=== PATIENT | male | born 1955 | race Caucasian/White ===

== ENCOUNTER 2017-07-25 11:34 | Emergency (ER) | payer BC ==
--- NOTE | 2017-07-25 11:52 | Emergency Department Record ---
History of Present Illness - General Chief complaint: Lower Extremity Pain Stated complaint: LEFT LEG PAIN Time Seen by Provider: 07/25/17 11:51 Source: Patient, Family Mode of Arrival: Ambulatory Limitations: No limitations - History of Present Illness Initial comments: 61 yo male presents with left leg pain that started last night. The pain radiates from the thigh to the calf and foot with walking or exertion. No swelling. His pain is better with rest. With walking the left foot felt a little numb and tingly. No paleness, coolness, or changes in color. No history of DVT. No joint pain in the hip or knee. No swelling of the foot, calf, thigh. The symptoms improve with rest. MD Complaint: Extremity pain Onset/Timin -: Days(s) Location: Left, Thigh History of Same: No Radiation: Distal Severity scale (1-10): 5 Quality: Aching Consistency: Constant Improves with: Nothing Worsens with: Exertion, Walking, Weight bearing Associated Symptoms: Denies other symptoms - Related Data Allergies Allergy/AdvReac Type Severity Reaction Status Date / Time enalapril AdvReac BEHAVIORAL Verified 07/25/17 11:48 CHANGES naproxen AdvReac DIARRHEA Verified 07/25/17 11:48 Travel Screening - Travel/Exposure Within Last 30 Days Have you traveled within the last 30 days?: No Review of Systems Constitutional: Denies: Chills, Fever, Malaise, Weakness Eyes: Denies: Eye discharge ENT: Denies: Congestion, Throat pain Respiratory: Denies: Cough, Dyspnea, Hemoptysis, Stridor, Wheezes Cardiovascular: Denies: Chest pain, Palpitations, Syncope Endocrine: Denies: Fatigue Gastrointestinal: Denies: Abdominal pain, Diarrhea, Nausea, Vomiting Genitourinary: Denies: Dysuria, Frequency, Hematuria Musculoskeletal: Reports: Myalgia. Denies: Arthralgia, Back pain, Joint swelling, Neck pain Skin: Denies: Bruising, Change in color, Rash Neurological: Reports: Tingling. Denies: Headache, Numbness, Weakness Psychiatric: Denies: Anxiety Hematological/Lymphatic: Denies: Blood Clots, Easy bleeding, Easy bruising, Swollen glands Past Medical History - SOCIAL HISTORY Smoking Status: Current every day smoker Alcohol Use: Heavy Drug Use: None - RESPIRATORY Hx Respiratory Disorders: No - CARDIOVASCULAR Hx Cardio Disorders: Yes Hx Hypertension: Yes - NEURO Hx Neuro Disorders: No - GI Hx GI Disorders: No - Hx Genitourinary Disorders: No - ENDOCRINE Hx Endocrine Disorders: No - MUSCULOSKELETAL Hx Musculoskeletal Disorders: Yes - PSYCH Hx Psych Problems: No - HEMATOLOGY/ONCOLOGY Hx Hematology/Oncology Disorders: No Family Medical History Any Significant Family History?: No Physical Exam - General General Appearance: Alert, Oriented x3, Cooperative, No acute distress Limitations: No limitations - Head Head exam: Normal inspection - Eye Eye exam: Normal appearance. negative: Conjunctival injection - ENT ENT exam: Normal exam, Mucous membranes moist Ear exam: Normal external inspection Nasal Exam: Normal inspection Mouth exam: Normal external inspection - Neck Neck exam: Normal inspection, Full ROM. negative: Tenderness - Respiratory Respiratory exam: Normal lung sounds bilaterally. negative: Respiratory distress - Cardiovascular Cardiovascular Exam: Regular rate, Normal rhythm, Normal heart sounds, Other ( No edema, visibly symmetric right and left. bilateral dimished pulses, with slowed cap refill bilateral but not cool ) Peripheral Pulses: 0: Dorsalis Pedis (L), 1+: Dorsalis Pedis (R) (dimished) - GI/Abdominal GI/Abdominal exam: Soft. negative: Distended, Guarding, Tenderness - Rectal Rectal exam: Deferred - exam: Deferred - Extremities Extremities exam: Normal inspection, Full ROM, Other (No swelling or tenderness , no edema, no abnormal warthm or coolness.). negative: Calf tenderness, Joint swelling, Normal capillary refill (mildly diminished bilaterally), Pedal edema, Tenderness - Back Back exam: Denies: CVA tenderness (R), CVA tenderness (L) - Neurological Neurological exam: Alert, Normal gait, Oriented X3. negative: Altered, Motor sensory deficit - Psychiatric Psychiatric exam: Normal affect, Normal mood - Skin Skin exam: Dry, Intact, Normal color, Warm. negative: Cyanosis, Diaphoretic, Erythema, Mottled, Pallor, Petechiae, Rash, Vesicles Course Vital Signs 07/25/17 11:45 Temperature 97.5 F L Pulse Rate 45 L Respiratory 20 Rate Blood Pressure 150/75 Pulse Ox 99 - Reevaluation(s) Reevaluation #1: [facility] [employer] reports decreased from on the left from possible proximal location Labs ordered 07/25/17 14:33 07/25/17 14:49 The CBC was reviewed and is unremarkable Waiting for US tech to send images to Radiologist I discussed heparin at this time with the patient given the preliminary concerns about decreased flow on the left 07/25/17 15:07 No acute changes in the labs on the CBC or CMP. 07/25/17 15:47 The arterial US was reports. Mild to moderate decreased flow on the right with plaque at the [employer] and SFA, The left demonstrates diffusely diminished flow on the left. 07/25/17 16:04 I ARCADIO Flores of vascular surgery. We discussed the velocities on the arterial study. He recommends transfer ER to ER for full duplex doppler. I called the [facility] I Arcadio Platt. The ED accepts the patient for transfer. 07/25/17 16:23 Medical Decision Making - Lab Data Result diagrams: 07/25/17 14:35 07/25/17 14:35 Disposition Disposition: Transfer Clinical Impression: Severe arterial insufficiency of left lower extremity Disposition: Acute Care Hospital Transfer Transfer To: [facility] Reason For Transfer: Acute arterial insufficiency Accepting Physician: Lc/Enio Time Discussed w/Accepting Physician: 16:17 Condition: (2) Stable Forms: Patient Portal Access Time of Disposition: 16:17 Quality - Quality Measures Quality Measures: N/A - Blood Pressure Screening Does Patient Have Any of the Following: Active Dx of HTN Blood Pressure Classification: Hypertensive Reading Systolic Measurement: 150 Diastolic Measurement: 75 Screening for High Blood Pressure: Patient Exclusion, Hx of HTN [G9744]
[2017-07-25] MEDS: HYDROCODONE/APAP 7.5/325MG TABLET PO ONE ×2 (12:10→12:11)
[2017-07-25] MEDS ORDERED: IBUPROFEN 600 MG TABLET PO ONE (12:11)
[2017-07-25] MEDS ORDERED: 0.9 % SODIUM CHLORIDE 1000ML 1,000 ML IV ONE (14:30)
[2017-07-25 14:45] LABS: BASO % 0.6 % (0-6); EOS % 1.2 % (0-6); GRAN % 68.4 % (47-80); HEMATOCRIT 44.4 % (42.0-52.0); HEMOGLOBIN 16.2 gm/dl (14.0-18.0); LYMPH % 22.7 % (16-45); MEAN CORPUSCULAR HEMOGLOBIN 35.8 pg (27-33); MEAN CORPUSCULAR HGB CONC 36.5 g/dl (32-36); MEAN PLATELET VOLUME 8.8 fl (7.4-10.4); MONO % 7.1 % (0-9); PLATELET COUNT 240 K/uL (130-400); RED BLOOD COUNT 4.53 M/uL (4.40-5.70); RED CELL DISTRIBUTION WIDTH 13.4 % (11.5-14.5); WHITE BLOOD COUNT W/O DIFF 10.3 K/uL (4.2-12.2)
[2017-07-25] MEDS ORDERED: HEPARIN SODIUM 1000 UNIT/1 ML 10ML VIAL IVP ONE (14:48)
[2017-07-25 14:54] LABS: BLOOD UREA NITROGEN 8 mg/dL (6-20); CREATININE 0.4 mg/dL (0.7-1.2); EST GLOMERULAR FILTRATION RATE > 60 mL/min
[2017-07-25 14:57] LABS: GLUCOSE,RANDOM 100 mg/dL (74-109)
[2017-07-25 14:58] LABS: PARTIAL THROMBOPLASTIN TIME 30.3 SECONDS (24.5-39.1); PROTHROMBIN TIME (PATIENT) 10.8 SECONDS (9.5-12.1)
[2017-07-25] MEDS ORDERED: HEPARIN SODIUM/D5W 25,000 UNITS/500 ML BAG IV SCH (15:00)
--- NOTE | 2017-07-26 19:26 | US ARTERIAL DOPPLER REPORT ---
EXAM: ARTERIAL DOPPLER OF THE BILATERAL LOWER EXTREMITIES HISTORY: PAIN WITH WALKING, LEFT LEG. TINGLING IN THE FOOT. SMOKER. TECHNIQUE: Sonographic evaluation of the arterial system of the bilateral lower extremities was performed with the addition of Doppler and spectral analysis. Images were obtained with the vascular probe oriented at 60 degrees. COMPARISON: None. FINDINGS: 3 Right Waveform Left Waveform Common Femoral Artery 191.0 cm/s triphasic 43.4 cm/s constant forward flow Profunda Femoral Artery 143.8 cm/s biphasic 15.9 cm/s constant forward flow Proximal Superficial Femoral Artery 87.7 cm/s triphasic 20.7 cm/s constant forward flow Mid Superficial Femoral Artery 46.4 cm/s triphasic 27.7 cm/s constant forward flow Distal Superficial Femoral Artery 183.7 cm/s triphasic 13.7 cm/s monophasic Popliteal Artery 49.1 cm/s triphasic 11.2 cm/s monophasic Anterior Tibial Artery 24.9 cm/s monophasic 8.0 cm/s constant forward flow Posterior Tibial Artery 36.3 cm/s triphasic 16.4 cm/s monophasic Peroneal Artery 28.0 cm/s monophasic 15.1 cm/s constant forward flow Dorsalis Pedis Artery 14.2 cm/s monophasic 5.9 cm/s monophasic When the images are reviewed, prominent calcified plaque is seen in the right common femoral, particularly posteriorly and there is also prominent calcified plaque in the distal right SFA, particularly posteriorly. Some is seen in the popliteal as well. On the left, there is also considerable calcified plaque in the upper common femoral in particular with some in the posterior aspect of the popliteal. IMPRESSION: 1. ON THE RIGHT, THERE IS SOME ELEVATION OF THE PEAK SYSTOLIC VELOCITY AT THE COMMON FEMORAL AND AGAIN AT THE DISTAL SUPERFICIAL FEMORAL WITH PLAQUE SEEN IN THIS REGION CONSISTENT WITH MILD TO MODERATE ATHEROMATOUS DISEASE. 2. ON THE LEFT, THERE IS PROBABLY A HIGH DEGREE OF STENOSIS PROXIMALLY INVOLVING THE EXTERNAL ILIAC AND COMMON FEMORAL WITH CONSIDERABLY REDUCED VELOCITY THROUGHOUT THE LOWER EXTREMITY WITH SEVERAL AREAS OF RELATIVELY CONSTANT FORWARD FLOW WITHOUT NORMAL WAVEFORMS SUGGESTING A POTENTIAL SEVERE LEVEL OF STENOSIS PROXIMALLY. FOLLOW-UP CTA OF THE LOWER EXTREMITIES MAY BE USEFUL. JOB NUMBER: [id number] [facility]
== END 2017-07-25 16:37 | disposition short-term general hospital (02) ==
LOC: ER 11:34
DX: I74.3 Embolism and thrombosis of arteries of the lower extremities (principal); I10 Essential (primary) hypertension; F17.210 Nicotine dependence, cigarettes, uncomplicated
CPT/HCPCS: 80048; 85025; 85610; 85730; 93925; 96365; 96366; 96375; 99285; J7030

== ENCOUNTER 2018-08-29 15:16 | Inpatient (IN) | payer BC ==
--- NOTE | 2018-08-29 15:33 | Emergency Department Record ---
History of Present Illness - General Chief complaint: GI Bleed Stated complaint: BLACK STOOL,HEADACHE Time Seen by Provider: 08/29/18 15:29 Source: Patient Mode of Arrival: Ambulatory Limitations: No limitations - History of Present Illness Initial comments: The patient is here due to having black stools for 3 days with nausea. He denies any AP, CP, fever, vomiting or diarrhea. The patient was recently started on Mobic for pain but did stop it 3 days ago. He has no hx of GI bleeds or PUD. MD complaint: Melena Onset/Timin -: Days(s) Radiation: None Quality: Painless Consistency: Constant Improves with: None Worsens with: None Context: Other Associated Symptoms: Denies other symptoms Treatments Prior to Arrival: None - Related Data Home Medications Medication Instructions Recorded Confirmed Last Taken Atorvastatin Calcium 10 mg PO DAILY 08/29/18 08/29/18 Unknown Allergies Allergy/AdvReac Type Severity Reaction Status Date / Time enalapril AdvReac BEHAVIORAL Verified 07/25/17 11:48 CHANGES naproxen AdvReac DIARRHEA Verified 07/25/17 11:48 Travel Screening - Travel/Exposure Within Last 30 Days Have you traveled within the last 30 days?: No Review of Systems Constitutional: Denies: Chills, Fever Eyes: Denies: Eye discharge ENT: Denies: Congestion Respiratory: Denies: Cough, Dyspnea Cardiovascular: Denies: Arrhythmia, Chest pain Endocrine: Denies: Fatigue Gastrointestinal: Reports: Melena, Nausea Genitourinary: Denies: Dysuria Musculoskeletal: Denies: Arthralgia Skin: Denies: Bruising Past Medical History - SOCIAL HISTORY Smoking Status: Former smoker Alcohol Use: None Drug Use: None - RESPIRATORY Hx Respiratory Disorders: No - CARDIOVASCULAR Hx Cardio Disorders: Yes Hx Hypertension: Yes - NEURO Hx Neuro Disorders: No - GI Hx GI Disorders: No - Hx Genitourinary Disorders: No - ENDOCRINE Hx Endocrine Disorders: No - MUSCULOSKELETAL Hx Musculoskeletal Disorders: Yes - PSYCH Hx Psych Problems: No - HEMATOLOGY/ONCOLOGY Hx Hematology/Oncology Disorders: No Family Medical History Any Significant Family History?: No Physical Exam - General General Appearance: Alert, Oriented x3, Cooperative, No acute distress - Head Head exam: Atraumatic, Normocephalic - Eye Eye exam: Normal appearance, PERRL - ENT Throat exam: Normal inspection. negative: Tonsillar erythema, Tonsillar exudate - Neck Neck exam: Normal inspection, Full ROM. negative: Tenderness - Respiratory Respiratory exam: Normal lung sounds bilaterally. negative: Respiratory distress - Cardiovascular Cardiovascular Exam: Regular rate, Normal rhythm, Normal heart sounds - GI/Abdominal GI/Abdominal exam: Soft, Normal bowel sounds. negative: Rebound, Rigid, Tenderness - Rectal Rectal exam: Black stool, Heme (+) stool - Extremities Extremities exam: Normal inspection, Full ROM, Normal capillary refill. negative: Tenderness - Neurological Neurological exam: Alert, Normal gait. negative: Abnormal gait, Motor sensory deficit - Psychiatric Psychiatric exam: negative: Anxious Course Vital Signs 08/29/18 15:22 Temperature 98.1 F Pulse Rate 96 H Respiratory 20 Rate Blood Pressure 162/81 Pulse Ox 97 - Reevaluation(s) Reevaluation #1: The patient is doing very well at this time. He denies any pain or nausea and is very hungry. I did explain the need for admission to [facility] and for an EGD on . We will check serial hemoglobins and will keep the patient on Protonix. I did discuss the case with Dr. Cabrera and he does agree to the admission. 08/29/18 16:34 Medical Decision Making - Data Complexity MDM Data: Labs Ordered and/or Reviewed - Lab Data Result diagrams: 08/29/18 15:50 08/29/18 15:50 Disposition Disposition: Admit Clinical Impression: Upper gastrointestinal bleed Disposition: Still a Patient at [facility] Decision to Admit: Admit from ER Decision to Admit Date: 08/29/18 Decision to Admit Time: 16:36 Accepting Physician: Deborah Time Discussed w/Accepting Physician: 16:36 Condition: (2) Stable Forms: Patient Portal Access Time of Disposition: 16:36 Quality - Quality Measures Quality Measures: N/A - Blood Pressure Screening View Details: Yes Does Patient Have Any of the Following: No Blood Pressure Classification: Pre-Hypertensive BP Reading Systolic Measurement: 162 Diastolic Measurement: 81 Screening for High Blood Pressure: < Pre-Hypertensive BP, F/U Documented > [ G8950] Pre-Hypertensive Follow-up Interventions: Referral to alternative/primary care provider.
[2018-08-29] MEDS ORDERED: ONDANSETRON HCL IV 4 MG/2 ML VIAL IV ONE (15:42)
[2018-08-29] MEDS ORDERED: 0.9 % SODIUM CHLORIDE 1,000 ML BAG IV ONE (15:42)
[2018-08-29 15:57] LABS: BASO % 0.4 % (0-6); EOS % 0.5 % (0-6); GRAN % 75.4 % (47-80); HEMATOCRIT 27.5 % (42.0-52.0); LYMPH % 16.1 % (16-45); MEAN CELL VOLUME 103.4 fl (81-97); MEAN CORPUSCULAR HEMOGLOBIN 33.8 pg (27-33); MEAN CORPUSCULAR HGB CONC 32.7 g/dl (32-36); MEAN PLATELET VOLUME 8.7 fl (7.4-10.4); MONO % 7.6 % (0-9); PLATELET COUNT 192 K/uL (130-400); RED BLOOD COUNT 2.66 M/uL (4.40-5.70); RED CELL DISTRIBUTION WIDTH 13.2 % (11.5-14.5); WHITE BLOOD COUNT W/O DIFF 8.5 K/uL (4.2-12.2)
[2018-08-29 16:08] LABS: BLOOD UREA NITROGEN 13 mg/dL (8-23); CREATININE 0.5 mg/dL (0.7-1.2); EST GLOMERULAR FILTRATION RATE > 60 mL/min
[2018-08-29 16:09] LABS: LIPASE 43 U/L (13-60); TOTAL PROTEIN 6.4 g/dL (6.6-8.7)
[2018-08-29] MEDS ORDERED: PANTOPRAZOLE SODIUM IV 40 MG VIAL IVP ONE (16:09)
[2018-08-29 16:11] LABS: GLUCOSE,RANDOM 117 mg/dL (74-109)
[2018-08-29 16:13] LABS: ALT/SGPT 34 U/L (<41)
[2018-08-29 16:14] LABS: ALBUMIN 4.1 g/dL (4.0-5.0); ALKALINE PHOSPHATASE 68 U/L (40-129); AST/SGOT 32 U/L (10.0-50.0); BILIRUBIN,DIRECT < 0.2 mg/dL (0-0.3)
[2018-08-29] MEDS ORDERED: 0.9 % SODIUM CHLORIDE 1000ML 1,000 ML IV PRN (18:18)
[2018-08-29] MEDS ORDERED: ONDANSETRON HCL IV 4 MG/2 ML VIAL IVP PRN (18:18)
[2018-08-29 19:49] LABS: ABO GROUP O; RH TYPE POSITIVE
[2018-08-29 19:50] LABS: ANTIBODY SCREEN NEGATIVE (NEGATIVE)
[2018-08-29] MEDS ORDERED: LORAZEPAM 2 MG/ML VIAL IV ONE (20:30)
[2018-08-29] MEDS ORDERED: LORAZEPAM 2 MG/ML VIAL IV PRN (20:31)
[2018-08-29] MEDS ORDERED: THIAMINE MONONITRATE 100 MG TABLET PO SCH (20:45)
[2018-08-29 21:46] LABS: HEMATOCRIT 24.9 % (42.0-52.0)
[2018-08-30 06:49] LABS: HEMATOCRIT 24.7 % (42.0-52.0); HEMOGLOBIN 7.8 gm/dl (14.0-18.0)
[2018-08-30 08:31] LABS: IMMED. SPIN CROSSMATCH COMPATIBLE
[2018-08-30] MEDS ORDERED: PANTOPRAZOLE SODIUM IV 40 MG VIAL IVP SCH (08:45)
--- NOTE | 2018-08-30 08:50 | History and Physical Report ---
DATE OF ADMISSION: 08/29/2018 at 7:48 p.m. CHIEF COMPLAINT: GI bleed. HISTORY OF PRESENT ILLNESS: This 62-year-old male presented to the emergency department with black tarry stools which started 3 days prior. He denies any abdominal pain but admits to drinking 12 beers a day and he was on Mobic for his right shoulder, degenerative joint disease, and rotator cuff disease which was repaired in May 2018. When the black tarry stools started, the patient stopped the Mobic but continued to drink 12 beers a day. He is having about 2 stools a day. His last beer was about 24 hours ago at 10 p.m. yesterday. PAST MEDICAL HISTORY: Hypertension, PVCs. He stopped tobacco use 1 year ago. Peripheral vascular disease, stents in both legs. Dr. Jarquin placed the stents. Alcoholism. Right shoulder rotator cuff disease. Arthritis in his low back. PAST SURGICAL HISTORY: Jaw surgery, vasectomy, rotator cuff right shoulder, last surgery was May 2018, had it done twice, and a ruptured disc in his back. MEDICATIONS: 1. Clonidine 0.2 mg daily for hypertension. 2. Atorvastatin 10 mg daily for cholesterol problems. ALLERGIES: ENALAPRIL, NAPROSYN. FAMILY/PSYCHOSOCIAL HISTORY: No significant family history. He is a former smoker. He quit smoking cigarettes about a year ago. He drinks 12 beers a day. No illegal drug use. REVIEW OF SYSTEMS: HEENT: No upper respiratory infection symptoms, cough, cold, or congestion. Cardiovascular: No chest pain, palpitations, or arrhythmia. Respiratory: No cough, cold, or congestion. Gastrointestinal: No abdominal pain. He is slightly distended. There is no pain on palpation of the liver. He has the color of liver disease, though. Genitourinary: No dysuria, hematuria, frequency, or burning on urination. Musculoskeletal: He has arthritis in his back and arms. Neurological: No CVA, paralysis, or paresthesias. Endocrine: No diabetes or thyroid disease. Integument: No rash, ulcers, change in moles, or yellow skin. PHYSICAL EXAMINATION: VITALS: Height 5 feet 9 inches, weight 165 pounds. Temperature 98.1, pulse 93, blood pressure 140/64, respiratory rate 16, pulse ox 96% on room air. HEENT: Pupils are equal, round, and reactive to light and accommodation. Extraocular muscles are intact. Throat is clear. Nose is clear. Tympanic membranes are mcintyre. NECK: Supple. No jugular venous distention. No hepatojugular reflux. No carotid bruits. Thyroid is smooth. CARDIOVASCULAR: Regular rate and rhythm without murmurs, clicks, rubs, or gallops. RESPIRATORY: Clear to auscultation. Breath sounds equal bilaterally. ABDOMEN: Soft, distended. He has enlarged liver. EXTREMITIES: No pitting edema. No cyanosis. He does have peripheral vascular disease. He has stents in both legs. Full range of motion of his extremities. Peripheral pulses are good. BREASTS: Normal male breasts. RECTAL: Exam deferred. It was done in the emergency department. Black stools, Hemoccult positive. GENITALIA: Deferred. NEUROLOGIC: Cranial nerves II-XII intact. No gross defects. Sensation normal, strength normal. Deep tendon reflexes equal bilaterally with Babinski negative. MENTAL STATUS: Alert and oriented x3. IMPRESSION: 1. Upper GI bleed secondary to Mobic and alcohol use. 2. Liver disease. 3. Alcoholism, 12 beers a day, last beer was 10 p.m. last night, just about 20 hours ago. PLAN: Serial hemoglobin starting at 10 p.m. every 8 hours. IV normal saline at 50 mL/hour. CC: Dr. Luis DAVIS
[2018-08-30] MEDS ORDERED: PANTOPRAZOLE SODIUM IV 40 MG VIAL IV SCH (10:00)
--- NOTE | 2018-08-30 10:15 | Discharge Note ---
VTE H&P Assessment - Risk for VTE Risk for VTE: Yes Risk Level: Moderate Risk Assessment Date: 08/29/18 Risk Assessment Time: 19:00 VTE Orders Placed or Will Be Placed: No VTE Reason for No Prophylaxis: Contraindicated (GI bleed) Discharge Medications - Discharge Medications Home Medications: Ambulatory Orders Clonidine HCl 0.2 mg PO DAILY 11/26/15 [Last Taken 07/25/17] Atorvastatin Calcium 10 mg PO DAILY 08/29/18 [Last Taken Unknown] Aspirin [Aspirin EC] 81 mg PO DAILY 08/30/18 [Last Taken Unknown] Discharge Note - Date Date of Discharge Note: 08/30/18 Disposition: Acute Care Hospital Transfer Condition: (2) Stable Additional Instructions: Discussed case with Dr. Anderson, Discussed with Dr. Rodríguez and will transfer to [facility] to a hospital bed. Forms: Patient Portal Access
--- NOTE | 2018-08-31 08:20 | Discharge Summary ---
DATE: 08/30/2018 at 10:17 a.m. DISCHARGE DIAGNOSES: 1. Upper GI bleed. 2. Alcoholism. Drinks 12 beers a day. 3. Right shoulder rotator cuff pain and was using Mobic, stopped on Tuesday. 4. Hypertension. ATTENDING PHYSICIAN: Marco Cabrera DO REASON FOR HOSPITALIZATION: This 62-year-old male was seen in the emergency department for black stools, having 2 black stools a day since Tuesday; 4 days ago. His hemoglobin in the ER was 9.0. He was placed in the hospital for serial hemoglobin and further evaluation by GI. SIGNIFICANT FINDINGS: His hemoglobin was 9.0 yesterday but dropped down to 7.8. He is getting 1 unit of blood now. Discussed the case with Dr. Anderson, the GI doctor who comes to our hospital tomorrow. He said he wants the patient transferred to [facility] to have his scope done. Because of his high risk for esophageal varices it can be a very dangerous procedure. HOSPITAL COURSE: The patient is tolerating the loss of blood and his vitals are stable. He is made aware of the transfer and he is in agreement. Discussed the case with Internal Medicine at [facility], Dr. Pena, who accepted the patient in transfer and have GI to see the patient. RYAN
== END 2018-08-30 10:50 | disposition short-term general hospital (02) | DRG 379 ==
LOC: ER 15:16 → MEDSURG 18:13
PROVIDERS: ADMIT Emergency Medicine; ATTEND Emergency Medicine
DX: K92.2 Gastrointestinal hemorrhage, unspecified (principal); R11.0 Nausea; R51 Headache; I10 Essential (primary) hypertension; Z87.891 Personal history of nicotine dependence; I73.9 Peripheral vascular disease, unspecified; F10.20 Alcohol dependence, uncomplicated; K70.9 Alcoholic liver disease, unspecified; M25.511 Pain in right shoulder
CPT/HCPCS: 80048; 80076; 83690; 85014; 85018; 85025; 86850; 86900; 86901; 96374; 96375; 99223; 99238; 99285; C9113; J7030

== ENCOUNTER 2019-04-04 21:04 | Emergency (ER) | payer BC ==
--- NOTE | 2019-04-04 21:40 | Emergency Department Record ---
History of Present Illness - General Chief complaint: Male Urogenital Problem Stated complaint: BLOOD IN URINE Time Seen by Provider: 04/04/19 21:24 Source: Patient Mode of Arrival: Ambulatory Limitations: No limitations - History of Present Illness Initial comments: pt c/o difficulty urinating and urinating blood. he had this happen once before but it spontaneously resolved. he is under a lot of stress. his passed awy 2 mos ago. he is lonely. he has been on the gm strike. he has discomfort in his abdomen and is urinating clots. pt is drinking a case of beer a day because of is stress and loneliness. MD Complaint: Other Onset/Timin -: Days(s) Severity: Moderate Severity scale (1-10): 6 Quality: Burning Consistency: Intermittent Worsens with: Urination Reports: Blood in urine, Urinary retention - Related Data Allergies Allergy/AdvReac Type Severity Reaction Status Date / Time enalapril AdvReac BEHAVIORAL Verified 04/04/19 21:28 CHANGES naproxen AdvReac DIARRHEA Verified 04/04/19 21:28 NSAIDS (Non-Steroidal AdvReac ABDOMINAL Verified 04/04/19 21:29 Anti-Inflamma PAIN Travel Screening - Travel/Exposure Within Last 30 Days Have you traveled within the last 30 days?: No - Travel/Exposure Within Last Year Have you traveled outside the [place] in the last year?: No - Additonal Travel Details Have you been exposed to anyone with a communicable illness?: No Review of Systems Reviewed: No additional complaints except as noted below Constitutional: Reports: As per HPI. Denies: Chills, Fever, Malaise, Night sweats, Weakness, Weight change Eyes: Reports: As per HPI. Denies: Eye discharge, Eye pain, Photophobia, Vision change ENT: Reports: As per HPI. Denies: Congestion, Dental pain, Ear pain, Epistaxis, Hearing loss, Throat pain Respiratory: Reports: As per HPI. Denies: Cough, Dyspnea, Hemoptysis, Stridor, Wheezes Cardiovascular: Reports: As per HPI. Denies: Arrhythmia, Chest pain, Dyspnea on exertion, Edema, Murmurs, Orthopnea, Palpitations, Paroxysmal nocturnal dyspnea, Rheumatic Fever, Syncope Endocrine: Reports: As per HPI. Denies: Fatigue, Heat or cold intolerance, Polydipsia, Polyuria Gastrointestinal: Reports: As per HPI. Denies: Abdominal pain, Constipation, Diarrhea, Hematemesis, Hematochezia, Melena, Nausea, Vomiting Genitourinary: Reports: As per HPI, Hematuria, Retention. Denies: Discharge, Dysuria, Frequency, Incontinence, Testicular pain, Testicular mass, Urgency Musculoskeletal: Reports: As per HPI. Denies: Arthralgia, Back pain, Gout, Joint swelling, Myalgia, Neck pain Skin: Reports: As per HPI. Denies: Bruising, Change in color, Change in hair/nails, Lesions, Pruritus, Rash Neurological: Reports: As per HPI. Denies: Abnormal gait, Confusion, Headache, Numbness, Paresthesias, Seizure, Tingling, Tremors, Vertigo, Weakness Psychiatric: Reports: As per HPI. Denies: Anxiety, Auditory hallucinations, Depression, Homicidal thoughts, Suicidal thoughts, Visual hallucinations Hematological/Lymphatic: Reports: As per HPI. Denies: Anemia, Blood Clots, Easy bleeding, Easy bruising, Swollen glands Past Medical History - SOCIAL HISTORY Smoking Status: Former smoker Alcohol Use: Heavy - RESPIRATORY Hx Respiratory Disorders: No - CARDIOVASCULAR Hx Cardio Disorders: Yes Hx Hypertension: Yes - NEURO Hx Neuro Disorders: No - GI Hx GI Disorders: No - Hx Genitourinary Disorders: No - ENDOCRINE Hx Endocrine Disorders: No - MUSCULOSKELETAL Hx Musculoskeletal Disorders: Yes - PSYCH Hx Psych Problems: No - HEMATOLOGY/ONCOLOGY Hx Hematology/Oncology Disorders: No Family Medical History Any Significant Family History?: No Physical Exam - General General Appearance: Alert, Oriented x3, Cooperative, Mild distress - Head Head exam: Normal inspection - Eye Eye exam: Normal appearance, PERRL, EOMI Pupils: Normal accommodation - ENT ENT exam: Normal exam, Mucous membranes moist, Normal external ear exam, Normal orophraynx Ear exam: Normal external inspection. negative: External canal tenderness Nasal Exam: Normal inspection. negative: Discharge, Sinus tenderness Mouth exam: Normal external inspection, Tongue normal Teeth exam: Normal inspection. negative: Dental caries Throat exam: Normal inspection. negative: Tonsillar erythema, Tonsillar exudate - Neck Neck exam: Normal inspection, Full ROM. negative: Tenderness - Respiratory Respiratory exam: Normal lung sounds bilaterally. negative: Respiratory distress - Cardiovascular Cardiovascular Exam: Regular rate, Normal rhythm, Normal heart sounds - GI/Abdominal GI/Abdominal exam: Soft, Normal bowel sounds, Tenderness - Rectal Rectal exam: Deferred - exam: Deferred - Extremities Extremities exam: Normal inspection, Full ROM, Normal capillary refill. negative: Tenderness - Back Back exam: Reports: Normal inspection, Full ROM. Denies: Muscle spasm, Rash noted, Tenderness - Neurological Neurological exam: Alert, CN II-XII intact, Normal gait, Oriented X3 - Psychiatric Psychiatric exam: Normal affect, Normal mood - Skin Skin exam: Dry, Intact, Normal color, Warm Course Vital Signs 04/04/19 21:10 Pulse Rate [ 88 Pulse Ox Probe] Respiratory 20 Rate Blood Pressure 175/96 [Left Arm] Pulse Ox 96 Medical Decision Making - Lab Data Result diagrams: 04/04/19 22:30 04/04/19 22:40 Disposition Disposition: Transfer Clinical Impression: Hyponatremia Hematuria Qualifiers: Hematuria type: gross Qualified Code(s): R31.0 - Gross hematuria Disposition: Still a Patient at [facility] Transfer To: [facility] Reason For Transfer: needs urology Accepting Physician: dr montalvo Time Discussed w/Accepting Physician: 23:53 Forms: Patient Portal Access Quality - Quality Measures Quality Measures: N/A - Blood Pressure Screening Does Patient Have Any of the Following: No Blood Pressure Classification: Pre-Hypertensive BP Reading Systolic Measurement: 162 Diastolic Measurement: 84 Screening for High Blood Pressure: < Pre-Hypertensive BP, F/U Documented > [G8950] Pre-Hypertensive Follow-up Interventions: Follow-up with rescreen every year.
[2019-04-04 22:14] LABS: URINE APPEARANCE TURBID; URINE BILIRUBIN NEGATIVE (NEGATIVE); URINE BLOOD LARGE (NEGATIVE); URINE COLOR RED; URINE GLUCOSE (UA) NEGATIVE (NEGATIVE); URINE KETONE TRACE (NEGATIVE); URINE LEUKOCYTE ESTERASE SMALL (NEGATIVE); URINE NITRITE POSITIVE (NEGATIVE)
[2019-04-04 22:16] LABS: URINE PROTEIN 300 mg/dL (NEGATIVE)
[2019-04-04 22:17] LABS: URINE BACTERIA 2+; URINE EPITHELIAL CELLS 0 - 2 (FEW)
[2019-04-04 22:42] LABS: ABSOLUTE NEUTROPHIL COUNT 5.68; BASO % 0.4 % (0-6); EOS % 1.9 % (0-6); GRAN % 62.8 % (47-80); HEMATOCRIT 37.7 % (42.0-52.0); HEMOGLOBIN 12.3 gm/dl (14.0-18.0); LYMPH % 25.7 % (16-45); MEAN CORPUSCULAR HEMOGLOBIN 32.2 pg (27-33); MEAN CORPUSCULAR HGB CONC 32.6 g/dl (32-36); MEAN PLATELET VOLUME 9.2 fl (7.4-10.4); MONO % 9.2 % (0-9); PLATELET COUNT 193 K/uL (130-400); RED BLOOD COUNT 3.81 M/uL (4.40-5.70); RED CELL DISTRIBUTION WIDTH 12.5 % (11.5-14.5); WHITE BLOOD COUNT W/O DIFF 9.1 K/uL (4.2-12.2)
[2019-04-04 22:59] LABS: BLOOD UREA NITROGEN 7 mg/dL (8-23); CREATININE 0.6 mg/dL (0.7-1.2); EST GLOMERULAR FILTRATION RATE > 60 mL/min; TOTAL PROTEIN 6.2 g/dL (6.6-8.7)
[2019-04-04 23:01] LABS: GLUCOSE,RANDOM 107 mg/dL (74-109)
[2019-04-04 23:04] LABS: ALB/GLOB RATIO 2.3 (1.1-1.8); ALBUMIN 4.3 g/dL (4.0-5.0); ALKALINE PHOSPHATASE 91 U/L (40-129); ALT/SGPT 60 U/L (<41); AST/SGOT 55 U/L (10.0-50.0)
--- NOTE | 2019-04-04 23:15 | CT SCAN REPORT ---
EXAMINATION: CT Abdomen and Pelvis without IV Contrast EXAM DATE: 04/04/2019 11:05 PM TECHNIQUE: Standard protocol CT imaging of the abdomen and pelvis was performed without intravenous c ontrast. INDICATION: abd pain COMPARISON: None ENCOUNTER: Not applicable CT ABDOMEN AND PELVIS FINDINGS: Lung Bases: Included extent of the lung bases are clear. Hepatobiliary: The liver has a normal size with a smooth surface. Pancreas: The pancreas is normal. Spleen: The spleen is not enlarged. Adrenals: The adrenal glands are normal. Gastrointestinal: The stomach and small bowel are normal with no obstruction or inflammation. The lar ge bowel is within normal limits. Reproductive Organs: Unremarkable Lymphatic System: There is no adenopathy within the abdomen or pelvis. Vasculature: Normal caliber abdominal aorta Peritoneum: No free fluid, free air, or inflammation Assessment of the solid organs, soft tissues, and vascular structures is overall limited on noncontra st imaging, IMPRESSION: There is hyperdense material within the urinary bladder consistent with hemorrhage Craven catheter in place. No obstructive uropathy Dictated by: Marleny Gomez DO on 04/04/2019 11:10 PM. .
[2019-04-04] MEDS ORDERED: CIPROFLOXACIN LACTATE/D5W 400 MG/200 ML BAG IVPB ONE (23:23)
[2019-04-04] MEDS ORDERED: LORAZEPAM 2 MG/ML VIAL IV ONE (23:45)
== END 2019-04-05 01:29 | disposition short-term general hospital (02) ==
LOC: ER 21:04
DX: E87.1 Hypo-osmolality and hyponatremia (principal); R31.0 Gross hematuria; R39.198 Other difficulties with micturition; I10 Essential (primary) hypertension; F17.210 Nicotine dependence, cigarettes, uncomplicated
CPT/HCPCS: 51702; 99285 ×2; 96365; 96375; 85025; 80053; 81001; 74176; G0480; J0744; J2060; 80320

== ENCOUNTER 2019-06-22 11:22 | Emergency (ER) | payer BC ==
[2019-06-22] MEDS ORDERED: LIDOCAINE UROJECT 10 ML APPL MM ONE (11:29)
--- NOTE | 2019-06-22 11:34 | Emergency Department Record ---
History of Present Illness - General Chief complaint: Male Urogenital Problem Stated complaint: PEEING BLOOD Time Seen by Provider: 06/22/19 11:23 Source: Patient Mode of Arrival: Ambulatory Limitations: No limitations - History of Present Illness Initial comments: 63 yo male presents with blood in the urine today and difficulty urinating. The onset was this morning. He reports he did have a bladder biopsy for possible bladder cancer on 06/08/19. He had similar bleeding in March that lead to the work up. No fever, chills, nausea, vomiting, or back pain. He does not know the biopsy results. He has an appointment Tuesday with Dr Buchanan. No blood thinners. MD Complaint: Other (Hematuria) -: Hour(s) Radiation: None Severity: Mild Quality: Other Consistency: Intermittent Improves with: None Worsens with: Urination Recent surgery Reports: Blood in urine - Related Data Home Medications Medication Instructions Recorded Confirmed Last Taken Amlodipine Besylate 5 mg PO DAILY 06/22/19 06/22/19 06/22/19 Fish Oil/Dha/Epa [Fish Oil 1,200 1 each PO BID 06/22/19 06/22/19 06/22/19 mg Fish Oil] Omeprazole [Prilosec] 20 mg PO DAILY 06/22/19 06/22/19 06/22/19 Allergies Allergy/AdvReac Type Severity Reaction Status Date / Time enalapril AdvReac BEHAVIORAL Verified 06/22/19 11:34 CHANGES naproxen AdvReac DIARRHEA Verified 06/22/19 11:34 NSAIDS (Non-Steroidal AdvReac ABDOMINAL Verified 06/22/19 11:34 Anti-Inflamma PAIN Review of Systems Constitutional: Denies: Chills, Fever, Malaise, Weakness Eyes: Denies: Eye discharge ENT: Denies: Congestion, Throat pain Respiratory: Denies: Cough, Dyspnea, Hemoptysis, Wheezes Cardiovascular: Denies: Chest pain, Palpitations, Syncope Endocrine: Denies: Fatigue, Polydipsia, Polyuria Gastrointestinal: Reports: Abdominal pain (none currently). Denies: Diarrhea, Nausea, Vomiting Genitourinary: Reports: Hematuria, Retention. Denies: Incontinence Musculoskeletal: Denies: Arthralgia, Back pain, Myalgia Skin: Denies: Bruising, Change in color, Rash Neurological: Denies: Headache Psychiatric: Denies: Anxiety Hematological/Lymphatic: Denies: Easy bleeding, Easy bruising Past Medical History - SOCIAL HISTORY Smoking Status: Former smoker - RESPIRATORY Hx Respiratory Disorders: No - CARDIOVASCULAR Hx Cardio Disorders: Yes Hx Hypertension: Yes - NEURO Hx Neuro Disorders: No - GI Hx GI Disorders: No - Hx Genitourinary Disorders: No - ENDOCRINE Hx Endocrine Disorders: No - MUSCULOSKELETAL Hx Musculoskeletal Disorders: Yes - PSYCH Hx Psych Problems: No - HEMATOLOGY/ONCOLOGY Hx Hematology/Oncology Disorders: No Physical Exam - General General Appearance: Alert, Oriented x3, Cooperative, No acute distress Limitations: No limitations - Head Head exam: Atraumatic, Normal inspection - Eye Eye exam: Normal appearance. negative: Conjunctival injection - ENT ENT exam: Normal exam Ear exam: Normal external inspection Nasal Exam: Normal inspection Mouth exam: Normal external inspection - Neck Neck exam: Normal inspection - Respiratory Respiratory exam: Normal lung sounds bilaterally - Cardiovascular Cardiovascular Exam: Regular rate, Normal rhythm, Normal heart sounds - GI/Abdominal GI/Abdominal exam: Soft. negative: Distended, Guarding, Tenderness - Extremities Extremities exam: Normal inspection - Back Back exam: Denies: CVA tenderness (R), CVA tenderness (L) - Neurological Neurological exam: Alert, Oriented X3 - Psychiatric Psychiatric exam: Normal affect, Normal mood - Skin Skin exam: Dry, Intact, Normal color, Warm Course - Reevaluation(s) Reevaluation #1: 06/22/19 11:33 CT scan reviewed from 04/04/19. Blood and ferguson noted in the bladder otherwise negative. 06/22/19 12:01 The HGB is 11.6 (12.3 on 05/20/19) Ferguson placed draining blood. No clots. 450ml initially drained 06/22/19 12:03 The BMP was reviewed. No acute abnormality. 06/22/19 12:05 06/22/19 13:33 On recheck the ferguson is still draining thicker bloody drainage after irrigation with 1200 ml NS Clots were periodically flushed out and it would again drain but remained bloody Dr Buchanan, his urologist, was paged 06/22/19 14:04 Dr Murguia called back. Given the persistent bleeding he recommended ED to ED transfer and call the urology resident 06/22/19 14:[address] Pedroza of the ED accepts the patient 06/22/19 16:42 Medical Decision Making - Lab Data Result diagrams: 06/22/19 11:43 06/22/19 11:43 Disposition Disposition: Transfer Clinical Impression: Hematuria Qualifiers: Hematuria type: unspecified type Qualified Code(s): R31.9 - Hematuria, unspecified Disposition: Acute Care Hospital Transfer Transfer To: [facility] Reason For Transfer: hematuria Accepting Physician: Yovany Time Discussed w/Accepting Physician: 14:09 Condition: (2) Stable Forms: Patient Portal Access Time of Disposition: 14:09 Quality - Quality Measures Quality Measures: N/A - Blood Pressure Screening Does Patient Have Any of the Following: No Blood Pressure Classification: Pre-Hypertensive BP Reading Systolic Measurement: 125 Diastolic Measurement: 62 Screening for High Blood Pressure: < Pre-Hypertensive BP, F/U Documented > [G8950] Pre-Hypertensive Follow-up Interventions: Referral to alternative/primary care provider.
[2019-06-22 11:51] LABS: ABSOLUTE NEUTROPHIL COUNT 5.69; BASO % 0.9 % (0-6); EOS % 1.7 % (0-6); GRAN % 70.9 % (47-80); HEMATOCRIT 37.6 % (42.0-52.0); HEMOGLOBIN 11.6 gm/dl (14.0-18.0); LYMPH % 18.4 % (16-45); MEAN CELL VOLUME 89.5 fl (81-97); MEAN CORPUSCULAR HEMOGLOBIN 27.6 pg (27-33); MEAN CORPUSCULAR HGB CONC 30.9 g/dl (32-36); MEAN PLATELET VOLUME 8.8 fl (7.4-10.4); MONO % 8.1 % (0-9); PLATELET COUNT 271 K/uL (130-400); RED CELL DISTRIBUTION WIDTH 14.8 % (11.5-14.5)
[2019-06-22 11:59] LABS: BLOOD UREA NITROGEN 8 mg/dL (8-23); CREATININE 0.8 mg/dL (0.7-1.2); EST GLOMERULAR FILTRATION RATE > 60 mL/min
[2019-06-22 12:01] LABS: INR 1.1; PARTIAL THROMBOPLASTIN TIME 27.3 SECONDS (24.5-39.1); PROTHROMBIN TIME (PATIENT) 10.9 SECONDS (9.5-12.1)
[2019-06-22 12:02] LABS: GLUCOSE,RANDOM 131 mg/dL (74-109)
[2019-06-22] MEDS ORDERED: 0.9 % SODIUM CHLORIDE 1,000 ML BAG IV ONE (12:50)
[2019-06-22 13:50] LABS: URINE APPEARANCE CLOUDY; URINE BILIRUBIN SMALL (NEGATIVE); URINE COLOR RED; URINE KETONE 15 mg/dL (NEGATIVE)
[2019-06-22 13:51] LABS: URINE BLOOD LARGE (NEGATIVE); URINE LEUKOCYTE ESTERASE MODERATE (NEGATIVE); URINE NITRITE POSITIVE (NEGATIVE); URINE PROTEIN 300 mg/dL (NEGATIVE); URINE UROBILINOGEN >=8.0 E.U./dL (0.20 - 1.00)
[2019-06-22 13:52] LABS: URINE EPITHELIAL CELLS 0 - 2 (FEW); URINE RBC TNTC (NONE SEEN)
== END 2019-06-22 15:15 | disposition short-term general hospital (02) ==
LOC: ER 11:22
DX: R31.0 Gross hematuria (principal); I10 Essential (primary) hypertension; Z87.891 Personal history of nicotine dependence
CPT/HCPCS: 80048; 81001; 85025; 85610; 85730; 99285; J7030